=== PATIENT | female | born 1950 | race Caucasian/White ===

== ENCOUNTER 2019-04-24 05:57 | Inpatient (IN) ==
[2019-04-17 14:34] LABS: Basophils # 0.1 10*3/uL (0.0-0.2); Eosinophils # 0.2 10*3/uL (0.0-0.87); Hematocrit 35.4 VOL% (35.7-47.0); Hemoglobin 10.7 GM/DL (12.0-16.0); Immature Granulocytes % 0.2 %; Immature Granulocytes Absolute 0.02 #; Lymphocytes # 3.2 10*3/uL (1.4-4.0); Lymphocytes % 38.2 % (21.3-54.2); Mean Corpuscular HGB Conc 30.2 GM/DL (32-36); Mean Platelet Volume 9.9 FL (9.6-12.0); Monocytes % 10.8 % (1.7-12.7); Neutrophils % 47.8 % (38.7-73.9); Platelet Count 333 T/CUMM (130-400); Red Blood Count 5.45 MC/CUMM (3.8-5.5); Red Cell Distribution Width 17.9 % (9.3-17.3); White Blood Count 8.4 T/CUMM (4-12)
[2019-04-17 14:50] LABS: Calcium 9.6 MG/DL (8.5-10.1); Osmolality,Calculated 275.7 MOS/KG (273-304)
[2019-04-17 14:52] LABS: Apearance,Urine Slightly Hazy (Clear); Bacteria,Urine Occasional /HPF (Few); Bilirubin,Urine Negative (Negative); Blood, Urine Small mg/dL (Negative); Glucose,Urine (UA) Negative (Negative); Ketones,Urine Negative (Negative); Mucus,Urine Occasional /LPF (Occasional); Nitrite,Urine Negative (Negative); Protein,Urine 100 MG/DL; RBC,Urine 30 /HPF (0-4); Squamous Epithelial Cell,Urine Occasional /HPF (0-10); Urine Color Yellow (Yellow); Urine Specific Gravity 1.011 (1.001-1.035); Urine Urobilinogen < 2.0 EU/DL (0.2-1.0); WBC,Urine 6 /HPF (0-6)
[~2019-04-24 05:57] MED LIST: ACETAMINOPHEN 325 MG TABLET PO PRN; MAGNESIUM HYDROXIDE SUSP 30 ML UDCUP PO PRN; traMADol 50 MG TABLET PO PRN
[2019-04-24] MEDS ORDERED: ALVIMOPAN 12 MG CAPSULE PO ONE ×2 (06:00)
[2019-04-24 07:34] LABS: Basophils % 0.5 % (0.0-0.8); Eosinophils # 0.2 10*3/uL (0.0-0.87); Eosinophils % 2.7 % (0.00-10.9); Hematocrit 33.7 VOL% (35.7-47.0); Hemoglobin 10.1 GM/DL (12.0-16.0); Immature Granulocytes % 0.3 %; Immature Granulocytes Absolute 0.02 #; Lymphocytes # 2.6 10*3/uL (1.4-4.0); Lymphocytes % 33.6 % (21.3-54.2); Mean Corpuscular Volume 65.3 FL (87-102); Mean Platelet Volume 10.1 FL (9.6-12.0); Neutrophils % 51.9 % (38.7-73.9); Platelet Count 304 T/CUMM (130-400); Red Blood Count 5.16 MC/CUMM (3.8-5.5); Red Cell Distribution Width 17.4 % (9.3-17.3); White Blood Count 7.7 T/CUMM (4-12)
[2019-04-24 07:43] LABS: INR 0.9
[2019-04-24 07:50] LABS: Calcium 9.6 MG/DL (8.5-10.1); Osmolality,Calculated 286.1 MOS/KG (273-304)
[2019-04-24] MEDS ORDERED: ceFAZolin 1,000 MG in SYRINGE 1 EACH IV ONE ×2 (08:39→09:26)
[2019-04-24] MEDS ORDERED: [UNRECOGNIZED DRUG - OTHER] PO SCH (09:00)
[2019-04-24] MEDS ORDERED: DIAZEPAM 5 MG TABLET PO ONE ×2 (09:32→09:37)
[2019-04-24] MEDS ORDERED: ceFAZolin 1,000 MG VIAL ONE ×2 (09:33→13:35)
[2019-04-24] MEDS ORDERED: ALVIMOPAN 12 MG CAPSULE ONE (09:34)
[2019-04-24] MEDS: SODIUM CHLORIDE 0.45% 1,000 ML IV SCH ×2 (10:08→17:13)
[2019-04-24] MEDS ORDERED: NALOXONE 0.4 MG/ML VIAL IV PRN (10:18)
[2019-04-24] MEDS ORDERED: HYDROmorphone PCA 30 MG/30 ML SYRINGE IV ONE (10:26)
[2019-04-24] MEDS ORDERED: cefTRIAXone 1,000 MG VIAL ONE (11:16)
[2019-04-24] MEDS ORDERED: HEPARIN/NACL 0.9% 2 UNITS/ML 2,000 ML IV ONE (12:12)
[2019-04-24] MEDS ORDERED: fentaNYL 100 MCG/2 ML VIAL ONE (13:24)
[2019-04-24] MEDS ORDERED: MIDAZOLAM 2 MG/2 ML VIAL ONE (13:25)
[2019-04-24] MEDS ORDERED: MIDAZOLAM 2 MG/2 ML VIAL IV ONE (13:30)
[2019-04-24] MEDS ORDERED: fentaNYL 100 MCG/2 ML VIAL IV ONE (13:30)
[2019-04-24] MEDS: ceFAZolin 1,000 MG in SYRINGE 1 EACH IV SCH ×2 (14:15→23:08)
[2019-04-24] MEDS ORDERED: ONDANSETRON 4 MG/2 ML VIAL ONE (14:36)
[2019-04-24] MEDS ORDERED: ONDANSETRON 4 MG/2 ML VIAL IV ONE (14:38)
[2019-04-24] MEDS ORDERED: NALOXONE 0.4 MG/ML VIAL ONE (14:43)
[2019-04-24] MEDS: HYDROmorphone PCA 30 MG/30 ML SYRINGE IV SCH (15:45)
[2019-04-24] MEDS: cefTRIAXone 1,000 MG in SYRINGE 1 EACH IV ONE (16:58)
[2019-04-24] MEDS: PANTOPRAZOLE 40 MG TABLET PO SCH (17:13)
[2019-04-24] MEDS: DOCUSATE SODIUM 100 MG CAPSULE PO SCH ×2 (17:13→21:33)
[2019-04-24] MEDS ORDERED: cloNIDine 0.1 MG TABLET PO ONE (18:00)
[2019-04-24] MEDS ORDERED: PROMETHAZINE 25 MG/1 ML VIAL IM PRN (18:13)
[2019-04-24] MEDS ORDERED: hydrALAZINE 20 MG/1 ML VIAL IV SCH (18:30)
[2019-04-24] MEDS: ALBUTEROL/IPRATROPIUM 3 ML NEB RESP TX SCH (19:56)
[2019-04-24] MEDS: ONDANSETRON 4 MG/2 ML VIAL IV PRN (21:30)
[2019-04-24] MEDS: cloNIDine 0.1 MG/24 HR PATCH TRANSDERM SCH (23:03)
[2019-04-24] MEDS: hydrALAZINE 20 MG/1 ML VIAL IV SCH (23:18)
[2019-04-25] MEDS: ALBUTEROL/IPRATROPIUM 3 ML NEB RESP TX SCH ×4 (00:34→19:10)
[2019-04-25] MEDS: ONDANSETRON 4 MG/2 ML VIAL IV PRN (05:50)
[2019-04-25] MEDS: hydrALAZINE 20 MG/1 ML VIAL IV SCH ×5 (05:52→23:30)
[2019-04-25] MEDS ORDERED: HEPARIN/NACL 0.9% 2 UNITS/ML 500 ML IV ONE (06:07)
[2019-04-25] MEDS ORDERED: cefTRIAXone 1,000 MG VIAL ONE (07:14)
[2019-04-25] MEDS: ceFAZolin 1,000 MG in SYRINGE 1 EACH IV SCH ×3 (07:23→21:24)
[2019-04-25] MEDS: cefTRIAXone 1,000 MG in SYRINGE 1 EACH IV ONE (07:32)
[2019-04-25 08:56] LABS: ABG Base Excess -1.8 MMOL/L (-2.5-2.5); ABG HCO3 22.9 MMOL/L (20-26); ABG Oxygen Saturation 98.2 % (95-100); ABG PCO2 31.8 MM HG (35-48); ABG PH 7.439 (7.35-7.45); ABG PO2 92.6 MM HG (80-95); ABG TCO2 19.3 MMOL/L (23-27); Glucose Heart Surgery 210 MG/DL (74-106); Hematocrit Heart Surgery 33.9 PERCENT (37-47); Potassium Heart/CVR 3.8 MMOL/L (3.5-5.1)
[2019-04-25] MEDS ORDERED: HYDROmorphone 2 MG/1 ML VIAL ONE (09:28)
[2019-04-25] MEDS ORDERED: SUGAMMADEX 200 MG/2 ML VIAL IV ONE (09:28)
[2019-04-25] MEDS ORDERED: ROPIVACAINE 0.5% 30 ML VIAL ONE ×2 (09:35→09:45)
[2019-04-25] MEDS ORDERED: propofoL 200 MG/20 ML VIAL IV ONE (10:28)
[2019-04-25] MEDS ORDERED: SEVOFLURANE 1 UNIT/15 MINUTE INH ONE (10:28)
[2019-04-25] MEDS ORDERED: LIDOCAINE 2% 5 ML VIAL ONE (10:28)
[2019-04-25 10:29] LABS: ABG Base Excess -3.7 MMOL/L (-2.5-2.5); ABG HCO3 21.3 MMOL/L (20-26); ABG Oxygen Saturation 98.7 % (95-100); ABG PCO2 49.5 MM HG (35-48); ABG PH 7.282 (7.35-7.45); ABG TCO2 21.3 MMOL/L (23-27); Glucose Heart Surgery 202 MG/DL (74-106); Hematocrit Heart Surgery 33.9 PERCENT (37-47); Potassium Heart/CVR 3.8 MMOL/L (3.5-5.1)
[2019-04-25] MEDS ORDERED: fentaNYL 250 MCG/5 ML VIAL ONE (10:29)
[2019-04-25] MEDS ORDERED: MIDAZOLAM 2 MG/2 ML VIAL ONE (10:29)
[2019-04-25] MEDS ORDERED: ONDANSETRON 4 MG/2 ML VIAL ONE (10:29)
[2019-04-25] MEDS ORDERED: PHENYLEPHRINE 1 MG/10 ML SYRINGE IV ONE (10:29)
[2019-04-25] MEDS ORDERED: SODIUM CHLORIDE 0.9% 2,000 ML IV ONE (10:30)
[2019-04-25] MEDS ORDERED: ROCURONIUM 100 MG/10 ML VIAL IV ONE (10:30)
[2019-04-25] MEDS ORDERED: LABETALOL 20 MG/4 ML SYRINGE IV ONE (10:30)
[2019-04-25] MEDS ORDERED: LACTATED RINGERS 1,000 ML IV ONE (10:30)
[2019-04-25] MEDS ORDERED: LABETALOL 100 MG/20 ML VIAL IV ONE (10:30)
[2019-04-25] MEDS ORDERED: HYDROmorphone PCA 30 MG/30 ML SYRINGE IV ONE (10:42)
[2019-04-25] MEDS: SODIUM CHLORIDE 0.45% 1,000 ML IV SCH ×2 (11:10→13:35)
[2019-04-25] MEDS: MORPHINE 4 MG/1 ML VIAL IV PRN ×3 (11:11→17:41)
[2019-04-25] MEDS ORDERED: GLUCAGON 1 MG VIAL IM PRN (11:59)
[2019-04-25] MEDS ORDERED: INFLUENZA VIRUS VACCINE 0.5 ML SYRINGE IM ONE (12:34)
[2019-04-25] MEDS ORDERED: DEXTROSE 10% 250 ML BAG IV PRN (12:39)
[2019-04-25] MEDS: DOCUSATE SODIUM 100 MG CAPSULE PO SCH ×2 (13:26→21:16)
[2019-04-25] MEDS: PANTOPRAZOLE 40 MG TABLET PO SCH (13:26)
[2019-04-25] MEDS: INSULIN REGULAR 100 UNIT/ML SUBCUT SCH ×3 (13:40→23:36)
[2019-04-25] MEDS: HYDROmorphone PCA 30 MG/30 ML SYRINGE IV SCH (14:34)
[2019-04-25] MEDS ORDERED: TRACE ELEMENTS (5) 1 ML, MULTIVITAMIN INJ 10 ML in AMINO ACIDS/DEXT/LYTES 5-15% 1,000 ML IV SCH (17:00)
[2019-04-25] MEDS ORDERED: DEXTROSE 10% 1,000 ML IV PRN (17:00)
[2019-04-25 17:41] LABS: Hematocrit 32.6 VOL% (35.7-47.0)
[2019-04-26] MEDS: ALBUTEROL/IPRATROPIUM 3 ML NEB RESP TX SCH ×4 (01:09→19:11)
[2019-04-26] MEDS: hydrALAZINE 20 MG/1 ML VIAL IV SCH ×4 (04:05→21:48)
[2019-04-26 04:56] LABS: Basophils % 0.1 % (0.0-0.8); Hematocrit 30.3 VOL% (35.7-47.0); Hemoglobin 9.2 GM/DL (12.0-16.0); Immature Granulocytes % 0.4 %; Immature Granulocytes Absolute 0.05 #; Lymphocytes # 1.9 10*3/uL (1.4-4.0); Lymphocytes % 14.5 % (21.3-54.2); Mean Corpuscular HGB Conc 30.4 GM/DL (32-36); Mean Corpuscular Volume 69.7 FL (87-102); Mean Platelet Volume 11.6 FL (9.6-12.0); Monocytes % 16.3 % (1.7-12.7); Neutrophils % 68.7 % (38.7-73.9); Platelet Count 212 T/CUMM (130-400); Red Blood Count 4.35 MC/CUMM (3.8-5.5); Red Cell Distribution Width 21.4 % (9.3-17.3); White Blood Count 12.9 T/CUMM (4-12)
[2019-04-26 05:18] LABS: Albumin 2.5 G/DL (3.4-5.0); Atypical Lymphocytes Few; Bilirubin,Total 0.9 MG/DL (0.2-1.0); Calcium 7.9 MG/DL (8.5-10.1); Hypochromasia 1+; Lymphocytes 15 % (20-55); Prealbumin 13.8 MG/DL (20-40); Segmented Neutrophils 73 % (50-85); Total Cells Counted 100
[2019-04-26 05:19] LABS: Anisocytosis 1+; Microcytosis 1+; Ovalocytes Slight; Platelet Estimate Normal; Polychromasia Slight
[2019-04-26] MEDS: ceFAZolin 1,000 MG in SYRINGE 1 EACH IV SCH ×3 (05:21→21:48)
[2019-04-26] MEDS: SODIUM CHLORIDE 0.45% 1,000 ML IV SCH ×3 (05:22→19:09)
[2019-04-26] MEDS: INSULIN REGULAR 100 UNIT/ML SUBCUT SCH ×3 (05:22→18:00)
[2019-04-26] MEDS: MORPHINE 4 MG/1 ML VIAL IV PRN ×5 (07:27→19:06)
[2019-04-26] MEDS: DOCUSATE SODIUM 100 MG CAPSULE PO SCH ×2 (08:40→21:48)
[2019-04-26] MEDS: PANTOPRAZOLE 40 MG TABLET PO SCH (08:40)
[2019-04-26] MEDS: traMADol 50 MG TABLET PO SCH ×3 (10:45→21:50)
[2019-04-26] MEDS: LIDOCAINE 5% PATCH TRANSDERM SCH (11:31)
[2019-04-26] MEDS ORDERED: FAT EMULSION 20% 250 ML IV SCH (14:00)
[2019-04-26] MEDS ORDERED: TRACE ELEMENTS (5) 1 ML, MULTIVITAMIN INJ 10 ML in AMINO ACIDS/DEXT/LYTES 5-15% 2,000 ML IV SCH (17:00)
[2019-04-27] MEDS: INSULIN REGULAR 100 UNIT/ML SUBCUT SCH ×4 (00:11→17:23)
[2019-04-27] MEDS: SODIUM CHLORIDE 0.45% 1,000 ML IV SCH ×3 (00:11→12:43)
[2019-04-27] MEDS: ALBUTEROL/IPRATROPIUM 3 ML NEB RESP TX SCH ×4 (00:37→20:54)
[2019-04-27] MEDS: MORPHINE 4 MG/1 ML VIAL IV PRN ×4 (02:13→13:17)
[2019-04-27 04:27] LABS: Basophils % 0.1 % (0.0-0.8); Eosinophils % 0.2 % (0.00-10.9); Hematocrit 27.1 VOL% (35.7-47.0); Hemoglobin 8.3 GM/DL (12.0-16.0); Immature Granulocytes % 0.5 %; Immature Granulocytes Absolute 0.06 #; Lymphocytes # 1.9 10*3/uL (1.4-4.0); Mean Corpuscular HGB Conc 30.6 GM/DL (32-36); Mean Corpuscular Volume 69.3 FL (87-102); Mean Platelet Volume 10.4 FL (9.6-12.0); Neutrophils % 70.2 % (38.7-73.9); Platelet Count 206 T/CUMM (130-400); Red Blood Count 3.91 MC/CUMM (3.8-5.5); Red Cell Distribution Width 21.3 % (9.3-17.3)
[2019-04-27] MEDS: traMADol 50 MG TABLET PO SCH ×4 (04:48→21:51)
[2019-04-27] MEDS: hydrALAZINE 20 MG/1 ML VIAL IV SCH ×4 (04:48→21:51)
[2019-04-27 04:50] LABS: Albumin 2.2 G/DL (3.4-5.0); Bilirubin,Total 0.5 MG/DL (0.2-1.0); Calcium 8.1 MG/DL (8.5-10.1); Osmolality,Calculated 272.2 MOS/KG (273-304); Total Protein 6.1 G/DL (6.4-8.3)
[2019-04-27] MEDS: ceFAZolin 1,000 MG in SYRINGE 1 EACH IV SCH ×3 (05:35→21:50)
[2019-04-27] MEDS: LIDOCAINE 5% PATCH TRANSDERM SCH (08:10)
[2019-04-27] MEDS: PANTOPRAZOLE 40 MG TABLET PO SCH (08:10)
[2019-04-27] MEDS: DOCUSATE SODIUM 100 MG CAPSULE PO SCH ×2 (08:10→20:19)
[2019-04-28] MEDS: INSULIN REGULAR 100 UNIT/ML SUBCUT SCH ×4 (01:01→17:36)
[2019-04-28] MEDS: SODIUM CHLORIDE 0.45% 1,000 ML IV SCH ×3 (01:01→14:00)
[2019-04-28] MEDS: ALBUTEROL/IPRATROPIUM 3 ML NEB RESP TX SCH ×4 (01:59→17:44)
[2019-04-28] MEDS: traMADol 50 MG TABLET PO SCH ×5 (03:50→22:25)
[2019-04-28] MEDS: hydrALAZINE 20 MG/1 ML VIAL IV SCH ×5 (03:50→22:25)
[2019-04-28] MEDS: ceFAZolin 1,000 MG in SYRINGE 1 EACH IV SCH ×3 (06:23→22:25)
[2019-04-28 06:43] LABS: Basophils % 0.2 % (0.0-0.8); Eosinophils # 0.1 10*3/uL (0.0-0.87); Eosinophils % 1.3 % (0.00-10.9); Hematocrit 25.1 VOL% (35.7-47.0); Hemoglobin 7.8 GM/DL (12.0-16.0); Immature Granulocytes % 0.2 %; Immature Granulocytes Absolute 0.02 #; Lymphocytes # 1.8 10*3/uL (1.4-4.0); Lymphocytes % 18.4 % (21.3-54.2); Mean Corpuscular HGB Conc 31.1 GM/DL (32-36); Mean Corpuscular Volume 69.5 FL (87-102); Monocytes % 13.7 % (1.7-12.7); NRBC # 0.02 10*3/uL; Neutrophils % 66.2 % (38.7-73.9); Platelet Count 213 T/CUMM (130-400); Red Blood Count 3.61 MC/CUMM (3.8-5.5); Red Cell Distribution Width 21.9 % (9.3-17.3); White Blood Count 9.8 T/CUMM (4-12)
[2019-04-28 07:16] LABS: Bilirubin,Total 0.7 MG/DL (0.2-1.0); Calcium 7.7 MG/DL (8.5-10.1); Osmolality,Calculated 275.7 MOS/KG (273-304)
[2019-04-28 08:58] LABS: Hypochromasia 3+; Microcytosis 3+; Platelet Estimate Normal; Polychromasia Slight; Target Cells Few
[2019-04-28] MEDS: PANTOPRAZOLE 40 MG TABLET PO SCH (09:16)
[2019-04-28] MEDS: DOCUSATE SODIUM 100 MG CAPSULE PO SCH ×2 (09:16→22:26)
[2019-04-28] MEDS: LIDOCAINE 5% PATCH TRANSDERM SCH (09:18)
[2019-04-29] MEDS: ALBUTEROL/IPRATROPIUM 3 ML NEB RESP TX SCH ×4 (00:20→19:33)
[2019-04-29] MEDS: INSULIN REGULAR 100 UNIT/ML SUBCUT SCH ×4 (01:03→17:01)
[2019-04-29] MEDS: SODIUM CHLORIDE 0.45% 1,000 ML IV SCH ×2 (02:33→16:56)
[2019-04-29] MEDS: MORPHINE 4 MG/1 ML VIAL IV PRN (03:22)
[2019-04-29 05:22] LABS: Basophils % 0.5 % (0.0-0.8); Eosinophils # 0.3 10*3/uL (0.0-0.87); Eosinophils % 3.3 % (0.00-10.9); Hematocrit 27.7 VOL% (35.7-47.0); Hemoglobin 8.4 GM/DL (12.0-16.0); Immature Granulocytes % 0.2 %; Immature Granulocytes Absolute 0.02 #; Lymphocytes % 24.6 % (21.3-54.2); Mean Corpuscular HGB Conc 30.3 GM/DL (32-36); Mean Corpuscular Volume 69.1 FL (87-102); Mean Platelet Volume 10.1 FL (9.6-12.0); Monocytes % 13.3 % (1.7-12.7); Neutrophils % 58.1 % (38.7-73.9); Platelet Count 276 T/CUMM (130-400); Red Blood Count 4.01 MC/CUMM (3.8-5.5); Red Cell Distribution Width 21.3 % (9.3-17.3); White Blood Count 8.2 T/CUMM (4-12)
[2019-04-29] MEDS: traMADol 50 MG TABLET PO SCH ×5 (05:44→22:56)
[2019-04-29] MEDS: ceFAZolin 1,000 MG in SYRINGE 1 EACH IV SCH ×3 (05:44→22:56)
[2019-04-29] MEDS: hydrALAZINE 20 MG/1 ML VIAL IV SCH ×5 (05:45→22:56)
[2019-04-29] MEDS: DOCUSATE SODIUM 100 MG CAPSULE PO SCH ×2 (08:29→22:55)
[2019-04-29] MEDS: PANTOPRAZOLE 40 MG TABLET PO SCH (08:30)
[2019-04-29] MEDS: LIDOCAINE 5% PATCH TRANSDERM SCH (08:30)
[2019-04-30] MEDS: INSULIN REGULAR 100 UNIT/ML SUBCUT SCH ×3 (00:05→14:21)
[2019-04-30] MEDS: ALBUTEROL/IPRATROPIUM 3 ML NEB RESP TX SCH ×4 (00:20→19:12)
[2019-04-30] MEDS: traMADol 50 MG TABLET PO SCH ×4 (04:21→21:39)
[2019-04-30] MEDS: hydrALAZINE 20 MG/1 ML VIAL IV SCH ×4 (04:21→21:35)
[2019-04-30 05:31] LABS: Prealbumin 11.3 MG/DL (20-40)
[2019-04-30] MEDS: ceFAZolin 1,000 MG in SYRINGE 1 EACH IV SCH (05:35)
[2019-04-30] MEDS: LIDOCAINE 5% PATCH TRANSDERM SCH (09:44)
[2019-04-30] MEDS: DOCUSATE SODIUM 100 MG CAPSULE PO SCH ×2 (09:44→20:51)
[2019-04-30] MEDS: PANTOPRAZOLE 40 MG TABLET PO SCH (09:44)
[2019-04-30] MEDS: SODIUM CHLORIDE 0.45% 1,000 ML IV SCH ×2 (09:45→22:45)
[2019-04-30 14:07] LABS: Basophils % 0.6 % (0.0-0.8); Eosinophils # 0.3 10*3/uL (0.0-0.87); Hematocrit 28.2 VOL% (35.7-47.0); Hemoglobin 8.6 GM/DL (12.0-16.0); Immature Granulocytes % 0.4 %; Immature Granulocytes Absolute 0.03 #; Lymphocytes # 1.9 10*3/uL (1.4-4.0); Lymphocytes % 28.1 % (21.3-54.2); Mean Corpuscular HGB Conc 30.5 GM/DL (32-36); Mean Platelet Volume 10.2 FL (9.6-12.0); Monocytes % 17.3 % (1.7-12.7); Neutrophils % 49.6 % (38.7-73.9); Platelet Count 312 T/CUMM (130-400); Red Blood Count 4.15 MC/CUMM (3.8-5.5); Red Cell Distribution Width 21.4 % (9.3-17.3); White Blood Count 6.7 T/CUMM (4-12)
[2019-04-30 14:26] LABS: Calcium 8.4 MG/DL (8.5-10.1); Osmolality,Calculated 278.4 MOS/KG (273-304)
[2019-04-30 14:45] LABS: Anisocytosis Slight; Eosinophils 3 % (0-10); Hypochromasia Slight; Lymphocytes 30 % (20-55); Microcytosis Slight; Ovalocytes Slight; Platelet Estimate Normal; Segmented Neutrophils 51 % (50-85); Tear Drop Cells Slight; Total Cells Counted 100
[2019-04-30 14:46] LABS: Target Cells Few
[2019-04-30] MEDS: PROPRANOLOL 40 MG TABLET PO SCH ×2 (14:53→20:51)
[2019-04-30] MEDS: MAGNESIUM HYDROXIDE SUSP 30 ML UDCUP PO SCH ×2 (14:53→21:35)
[2019-05-01] MEDS: ALBUTEROL/IPRATROPIUM 3 ML NEB RESP TX SCH ×3 (00:09→13:03)
[2019-05-01] MEDS: hydrALAZINE 20 MG/1 ML VIAL IV SCH ×3 (03:43→16:14)
[2019-05-01] MEDS: traMADol 50 MG TABLET PO SCH ×4 (03:44→16:15)
[2019-05-01] MEDS: MAGNESIUM HYDROXIDE SUSP 30 ML UDCUP PO SCH ×2 (06:01→13:53)
[2019-05-01] MEDS: PANTOPRAZOLE 40 MG TABLET PO SCH (09:23)
[2019-05-01] MEDS: PROPRANOLOL 40 MG TABLET PO SCH (09:23)
[2019-05-01] MEDS: LIDOCAINE 5% PATCH TRANSDERM SCH (09:24)
[2019-05-01] MEDS: cloNIDine 0.1 MG/24 HR PATCH TRANSDERM SCH (09:24)
[2019-05-01] MEDS: DOCUSATE SODIUM 100 MG CAPSULE PO SCH (09:24)
[2019-05-01 16:19] VITALS: BP 132/51
== END 2019-05-01 19:08 | disposition home or self-care (01) | DRG 658 ==
LOC: N.SDSINP 05:57 → N.ICU 16:05 → N.5E 04-27 12:50
PROVIDERS: ADMIT Internal Medicine; ATTEND Internal Medicine